=== PATIENT | female | born 1980 | race Caucasian/White ===

== ENCOUNTER 2025-04-07 10:51 | Emergency (ER) | payer SELFPAY ==
[2025-04-07 11:57] LABS: #Basophils 0.05 10x3/uL (0.0-0.2); #Eosinophils 0.05 10x3/uL (0.0-0.5); #Monocytes 0.73 10x3/uL (0.0-1.1); #Neutrophils 9.04 10x3/uL (1.5-8.4); %Basophils 0.4 % (0.0-2.0); %Eosinophils 0.4 % (0.0-6.0); %Lymphocytes 19.3 % (18.0-47.0); %Monocytes 5.9 % (0.0-10.0); %Neutrophils 73.8 % (40.0-75.0); Hematocrit 39.8 % (34.9-44.5); Hemoglobin 14.0 g/dL (12.0-15.5); Mean Corpuscular Hemoglobin 30.6 pg (27.0-33.0); Mean Corpuscular Volume 86.9 fL (81.6-98.3); Platelet Count 333 10x3/uL (150-450); Red Blood Cell (RBC) Count 4.58 10x6/uL (3.90-5.03); White Blood Cell (WBC) Count 12.27 10x3/uL (3.5-10.5)
[2025-04-07 12:24] LABS: Acetaminophen Less than 10 mcg/mL (Less than 10); Magnesium 1.8 mg/dL (1.6-2.6); Salicylate Less than 8.0 mg/dL (Less than 8.0)
[2025-04-07 12:29] LABS: ALT (SGPT) 12 U/L (Less than 34); AST (SGOT) 18 U/L (11-34); Albumin 3.5 g/dL (3.1-4.5); Alkaline Phosphatase 83 U/L (40-110); Anion Gap 12 mmol/L (10-20); BUN (Urea Nitrogen) Less than 4 mg/dL (7.0-18.7); Bilirubin, Total 0.6 mg/dL (0.3-1.2); Calc. Creatinine Clearance 0 mL/min (70-130); Calcium 8.6 mg/dL (7.8-10.44); Carbon Dioxide 29 mmol/L (22-29); Chloride 99 mmol/L (98-107); Globulin 2.6 g/dL (2.4-3.5); Glucose 107 mg/dL (70-105); Potassium 2.7 mmol/L (3.5-5.1); Sodium 137 mmol/L (136-145)
[2025-04-07 12:32] LABS: Troponin I Less than 0.010 ng/mL (< 0.028)
[2025-04-07 12:35] LABS: Glucose, Urine (Dipstick) Normal (Negative); Leukocyte Negative (Negative); Protein, Urine (Dipstick) Negative (Neg-Trace); Specific Gravity, Urine 1.010 (1.005-1.030)
[2025-04-07 12:43] LABS: Cocaine Metabolite Screen Negative (Negative); THC/Cannabinoid Screen Negative (Negative); Tricyclic Screen Negative (Negative)
[2025-04-07 12:45] LABS: Bacteria/HPF None Seen HPF (None Seen); CAUTI Indications for Culture Alt mental st,lethar; RBC/HPF None Seen HPF (0-3); WBC/HPF 0-3 HPF (0-3)
[2025-04-07 12:46] LABS: Urine Culture Reflex No No
== END 2025-04-07 13:20 | disposition home or self-care (01) ==
LOC: CSHERS 10:51
DX: I10 Essential (primary) hypertension (principal); E87.6 Hypokalemia; F17.210 Nicotine dependence, cigarettes, uncomplicated
CPT/HCPCS: 71045; 80053; 80306; 80307; 81001; 83735; 84484; 85025; 87428; 93005

== ENCOUNTER 2025-04-13 19:59 | Emergency (ER) | payer SELFPAY ==
[2025-04-13 20:50] LABS: #Basophils 0.05 10x3/uL (0.0-0.2); #Eosinophils 0.16 10x3/uL (0.0-0.5); #Monocytes 0.57 10x3/uL (0.0-1.1); #Neutrophils 6.45 10x3/uL (1.5-8.4); %Basophils 0.5 % (0.0-2.0); %Eosinophils 1.5 % (0.0-6.0); %Lymphocytes 30.8 % (18.0-47.0); %Monocytes 5.4 % (0.0-10.0); %Neutrophils 61.4 % (40.0-75.0); Hematocrit 36.0 % (34.9-44.5); Hemoglobin 12.6 g/dL (12.0-15.5); Mean Corpuscular Hemoglobin 31.2 pg (27.0-33.0); Mean Corpuscular Volume 89.1 fL (81.6-98.3); Platelet Count 309 10x3/uL (150-450); Red Blood Cell (RBC) Count 4.04 10x6/uL (3.90-5.03); White Blood Cell (WBC) Count 10.51 10x3/uL (3.5-10.5)
[2025-04-13 21:05] LABS: ALT (SGPT) 9 U/L (Less than 34); AST (SGOT) 13 U/L (11-34); Albumin 3.3 g/dL (3.1-4.5); Alkaline Phosphatase 81 U/L (40-110); Anion Gap 8 mmol/L (10-20); BUN (Urea Nitrogen) 4 mg/dL (7.0-18.7); Bilirubin, Total 0.2 mg/dL (0.3-1.2); Calc. Creatinine Clearance 0 mL/min (70-130); Calcium 8.9 mg/dL (7.8-10.44); Carbon Dioxide 28 mmol/L (22-29); Chloride 102 mmol/L (98-107); Globulin 2.6 g/dL (2.4-3.5); Glucose 99 mg/dL (70-105); Sodium 135 mmol/L (136-145)
[2025-04-13 21:14] LABS: Potassium 2.6 mmol/L (3.5-5.1)
[2025-04-13 21:18] LABS: Magnesium 1.8 mg/dL (1.6-2.6)
[2025-04-13 21:24] LABS: Troponin I Less than 0.010 ng/mL (< 0.028)
[2025-04-13] MEDS ORDERED: Ondansetron PF 4 MG/2 ML Vial ONE (21:32)
[2025-04-13 21:39] LABS: Glucose, Urine (Dipstick) Normal (Negative); Leukocyte Negative (Negative); Protein, Urine (Dipstick) Negative (Neg-Trace); Specific Gravity, Urine 1.010 (1.005-1.030)
[2025-04-13 21:41] LABS: Pregnancy Test - Urine (BHCG) Negative (Negative)
[2025-04-13 21:42] LABS: Pregu Control Background? CLEAR/WHITE (CLR/WHITE); Pregu Control Bar Appear? YES (CONTROL BAR)
[2025-04-13 21:47] LABS: CAUTI Indications for Culture Dysuria,urgency,freq; RBC/HPF 0-3 HPF (0-3); WBC/HPF 0-3 HPF (0-3)
[2025-04-13 21:48] LABS: Bacteria/HPF Rare-Few HPF (None Seen)
[2025-04-13 21:49] LABS: Urine Culture Reflex No No
[2025-04-13] MEDS ORDERED: Potassium Chloride 20 MEQ (100 mL) BAG ONE (23:04)
[2025-04-13 23:42] LABS: Potassium 2.8 mmol/L (3.5-5.1)
[2025-04-14 02:31] LABS: Potassium 3.4 mmol/L (3.5-5.1)
== END 2025-04-14 03:15 | disposition home or self-care (01) ==
LOC: CSHERS 19:59
DX: E87.6 Hypokalemia (principal); F17.210 Nicotine dependence, cigarettes, uncomplicated
CPT/HCPCS: 36415; 80053; 81001; 81025; 83735; 83880; 84132; 84484; 85025; 93005; 96374; 96375; J2405; J3480